=== PATIENT | male | born 2000 | race Caucasian/White ===

== ENCOUNTER 2023-06-27 23:58 | Emergency (ER) | payer BC ==
[~2023-06-27] VITALS: Ht 172.7 cm; Wt 82.5 kg
[2023-06-28 00:25] VITALS: O2SAT 100
[2023-06-28] MEDS ORDERED: IBUP-2030 MT (01:07)
[2023-06-28] MEDS ORDERED: CYCL10TA21 MT (01:07)
[2023-06-28 01:31] VITALS: BP 135/86; PULSE 87; RESP 16; TEMP 98.9
== END 2023-06-28 01:33 | disposition home or self-care (01) ==
LOC: ER 06-28 00:14
DX: M54.50 Low back pain, unspecified (principal); Z85.9 Personal history of malignant neoplasm, unspecified; V49.49XA Driver injured in collision with other motor vehicles in traffic accident, initial encounter; Y93.89 Activity, other specified; Y92.89 Other specified places as the place of occurrence of the external cause; Y99.8 Other external cause status
CPT/HCPCS: 99283